=== PATIENT | male | born 1960 | race African-American/Black ===

== ENCOUNTER 2017-11-22 12:24 | Emergency (ER) | payer OTHER ==
[~2017-11-22] VITALS: Ht 182.9 cm; Wt 105.5 kg
[2017-11-22 16:14] LABS: MCH 29.6 PG (29.0-34.0); MCV 84.6 FL (86-99); PLATELET COUNT 112 K/uL (156-360); RBC DIS.WIDTH-CV 13.5 % (11.8-14.6); RBC DIS.WIDTH-SD 42.1 % (39-53); RED BLOOD COUNT 4.73 M/uL (4.00-5.50); WHITE BLOOD COUNT 5.4 K/uL (4.1-10.2)
[2017-11-22 16:15] LABS: APPEARANCE CLEAR ((CLEAR)); BILIRUBIN NEGATIVE; BLOOD NEGATIVE; COLOR STRAW ((YELLOW)); GLUCOSE (STRIP) NEGATIVE; KETONES NEGATIVE; LEUKOCYTES NEGATIVE; NITRITE NEGATIVE; PROTEIN (STRIP) NEGATIVE; UCUL ADDED? NO; UROBILINOGEN 0.2 MG/DL (0.2-1.0)
[2017-11-22 16:22] LABS: CHLORIDE 106 mEq/L (99-109); POTASSIUM 4.2 mEq/L (3.7-5.4); SODIUM 140 mEq/L (136-147)
[2017-11-22 16:23] LABS: GLUCOSE 135 mg/dL (70-99)
[2017-11-22 16:27] LABS: CREATININE 1.3 mg/dL (0.6-1.3); GFR ESTIMATE (CALCULATED) > 59 mL/min/ (58.99-99999)
[2017-11-22 16:28] LABS: UREA NITROGEN (BUN) 10 mg/dL (9-23)
[2017-11-22] MEDS ORDERED: MOTRIN800 MG PO (17:30)
[2017-11-22 18:03] VITALS: BP 133/90
== END 2017-11-22 18:16 ==
LOC: EME 12:24
PROVIDERS: Nurse Practitioner Family
DX: N50.812 Left testicular pain (principal); B19.20 Unspecified viral hepatitis C without hepatic coma; E11.9 Type 2 diabetes mellitus without complications; E78.5 Hyperlipidemia, unspecified; Z87.891 Personal history of nicotine dependence
CPT/HCPCS: 76870; 80048; 81003; 85027; 99281; 99284